=== PATIENT | female | born 1970 | race Caucasian/White ===

== ENCOUNTER 2018-01-11 14:43 | Emergency (ER) | payer OTHER ==
[~2018-01-11] VITALS: Ht 172.7 cm; Wt 136.1 kg
[2018-01-11 15:34] LABS: ABSOLUTE BASOPHIL COUNT 0 /CUMM (0.0-0.2); ABSOLUTE EOSINOPHIL COUNT 0.3 /CUMM (0.0-0.7); ABSOLUTE GRANULOCYTE CT 8.8 /CUMM (1.4-6.5); ABSOLUTE LYMPH COUNT 2.1 /CUMM (1.2-3.4); ABSOLUTE MONOCYTE COUNT 0.8 /CUMM (0.10-0.60); BASOPHIL % 0.2 % (0.0-2.0); EOSINOPHIL % 2.7 % (0-5); GRANULOCYTE % 73.5 % (42.2-75.2); HEMATOCRIT 49.2 % (37-47); MEAN CORPUSCULAR HGB 29.1 PG (27.0-31.0); MEAN CORPUSCULAR HGB CONC 33.8 G/DL (33.0-37.0); MEAN CORPUSCULAR VOLUME 85.9 FL (81.0-99.0); MEAN PLATELET VOLUME 8.4 FL (7.4-10.4); PLATELET COUNT 271 /CUMM (130-400); RED BLOOD CELL CT 5.73 /CUMM (4.20-5.40)
--- NOTE | 2018-01-11 16:32 | ED GENERAL ADULT ---
History of Present Illness General Chief Complaint: Chest Pain Stated Complaint: CP Source: patient Exam Limitations: no limitations Vital Signs & Intake/Output Vital Signs & Intake/Output Vital Signs Date Time Temp Pulse Resp B/P B/P Pulse O2 O2 Flow FiO2 Mean Ox Delivery Rate 01/11 1900 93 22 139/73 97 Room Air 01/11 1824 97 01/11 1735 98.1 94 18 157/85 97 Room Air 01/11 1733 97 Room Air 01/11 1505 98.2 104 16 140/89 97 Room Air Allergies Coded Allergies: Sulfa (Sulfonamide Antibiotics) (ANAPHYLAXIS 01/11/18) Reconcile Medications Albuterol Sulfate (Proair Hfa) 90 MCG HFA.AER.AD 2 PUF INH Q4-6 PRN PRN BRONCHITIS Albuterol Sulfate (Proair Hfa) 90 MCG HFA.AER.AD 2 PUF INH Q4-6 PRN PRN BRONCHITIS Atorvastatin Calcium 10 MG TABLET 1 TAB PO DAILY CHOL (Reported) Codeine Phosphate/Guaifenesi (Codeine-Guaifen 10-100 MG/5 Ml) 10 MG-100 MG/5 ML LIQUID 2 TSP PO Q6 PRN COUGH Fluconazole 200 MG TABLET 1 TAB PO DAILY UNK (Reported) Metformin HCl 850 MG TABLET 1 TAB PO BID DM (Reported) Prednisone 20 MG TABLET 1 TAB PO DAILY BRONCHITIS Sitagliptin Phosphate (Januvia) 100 MG TABLET 1 TAB PO DAILY DM (Reported) Triage Note: PT SENT IN BY DR. RAMIREZ TO R/O PE. PT HAVING PLURITIC CHEST PAIN FOR THE PAST TWO WEEKS. PT NEW ONSET DM. Triage Nurses Notes Reviewed? yes Onset: Abrupt Duration: week(s): Timing: recent history : No Patient currently breastfeeds: No HPI: 01/11/18 47-year-old female presented to the emergency department for cough, nasal congestion and difficulty breathing. She had the symptoms for over 2 weeks. She had left sided rib pain. She only has the pain when she coughs. She says that she was newly diagnosed with diabetes by Dr. Ramirez, Dr. Ramirez had prescribed her Zithromax but she hasn't filled it yet. He also started her on metformin. She denies any fever. No prior history of asthma. She was referred to the emergency department to rule out PE. Past History Travel History Traveled to [place] past 21 day No Medical History Any Pertinent Medical History? see below for history Neurological: NONE EENT: NONE Cardiovascular: NONE Respiratory: NONE Gastrointestinal: NONE Hepatic: NONE Renal: NONE Musculoskeletal: NONE Psychiatric: NONE Endocrine: diabetes Blood Disorders: NONE Cancer(s): NONE [employer]/Reproductive: POLYCYSTIC OVARIAN SYNDRO Isolation History: Standard Surgical History Surgical History: non-contributory (laser myomectomy) Psychosocial History What is your primary language Vietnamese Tobacco Use: Current Daily Use Daily Tobacco Use Amount/Type: => 5 Cigarettes daily ETOH Use: occasional use Illicit Drug Use: denies illicit drug use Family History Hx Contributory? No Review of Systems Review of Systems Constitutional: Reports: see HPI. EENTM: Reports: no symptoms. Respiratory: Reports: cough. Denies: no symptoms. Cardiovascular: Reports: chest pain. Denies: edema. GI: Reports: no symptoms. Genitourinary: Reports: no symptoms. Musculoskeletal: Reports: no symptoms. Skin: Reports: no symptoms. Neurological/Psychological: Reports: no symptoms. Hematologic/Endocrine: Reports: no symptoms. Immunologic/Allergic: Reports: no symptoms. Physical Exam Physical Exam General Appearance: well developed/nourished, alert, awake, anxious Head: atraumatic, normal appearance Eyes: Bilateral: normal appearance, PERRL, EOMI. Ears, Nose, Throat: normal pharynx, normal ENT inspection Neck: normal inspection, supple, full range of motion Respiratory: decreased breath sounds Cardiovascular: regular rate/rhythm Peripheral Pulses: 4+ radial (R), 4+ radial (L) Gastrointestinal: normal bowel sounds, soft, non-tender Back: normal range of motion Extremities: normal inspection, no edema Neurologic/Psych: no motor/sensory deficits, awake, alert, oriented x 3 Skin: intact, normal color, warm/dry Core Measures ACS in differential dx? No CVA/TIA Diagnosis: No Sepsis Present: No Sepsis Focused Exam Completed? No Progress Differential Diagnoses I considered the following diagnoses in my evaluation of the patient: chest wall pain, pulmonary embolism,upper respiritory infection, pleurisy, costrocondritis, bronchittis Plan of Care: Orders Procedure Date/time Status Add-on Test (ER Only) 01/11 1643 Active TROPONIN LEVEL 01/11 1518 Complete D-DIMER 01/11 1518 Complete HUMAN BETA HCG SCREEN 01/11 1508 Complete COMPREHENSIVE METABOLIC PANEL 01/11 1508 Complete CBC WITHOUT DIFFERENTIAL 01/11 1508 Complete EKG 01/11 1444 Active Laboratory Tests 01/11/18 1518: Anion Gap 13, Estimated GFR > 60, BUN/Creatinine Ratio 16.3, Glucose 283 H, Calcium 9.6, Total Bilirubin 0.3, AST 28, ALT 54 H, Alkaline Phosphatase 106, Troponin I < 0.01, Total Protein 7.4, Albumin 4.1, Globulin 3.3, Albumin/ Globulin Ratio 1.2, Total Beta HCG NEGATIVE, D-Dimer High Sensitivty < 200, CBC w Diff NO MAN DIFF REQ, RBC 5.73 H, MCV 85.9, MCH 29.1, MCHC 33.8, RDW 14.0, MPV 8.4, Gran % 73.5, Lymphocytes % 17.3 L, Monocytes % 6.3, Eosinophils % 2.7, Basophils % 0.2, Absolute Granulocytes 8.8 H, Absolute Lymphocytes 2.1, Absolute Monocytes 0.8 H, Absolute Eosinophils 0.3, Absolute Basophils 0 01/11/18 1509: Troponin I Cancelled Initial ED EKG: NSR, nonspecific ST T wave chg Comments: The patient's CTA was negative. EKG was unremarkable. Troponin was negative. Her pain was in the rib not in her chest. It only when she coughs. Prednisone and Robitussin with codeine were added to her treatment regime. She will empirically start the Zithromax. She will follow-up with Dr. Ramirez. She will return to the emergency department if worse. Departure Departure Disposition: HOME OR SELF CARE Condition: Stable Clinical Impression Primary Impression: Bronchitis Referrals: James [facility] (PCP/Family) Departure Forms: Customer Survey General Discharge Information Prescriptions: Current Visit Scripts Albuterol Sulfate (Proair Hfa) 2 PUF INH Q4-6 PRN PRN BRONCHITIS #1 INHAL Albuterol Sulfate (Proair Hfa) 2 PUF INH Q4-6 PRN PRN BRONCHITIS #1 INHAL Prednisone 1 TAB PO DAILY #6 TAB Codeine Phosphate/Guaifenesi (Codeine-Guaifen 10-100 MG/5 Ml) 2 TSP PO Q6 PRN COUGH #4 OZ Critical Care Note Critical Care Note Critical Care Time: non-applicable
[2018-01-11] MEDS ORDERED: FLUCONAZOLE200 M1 PO (16:34)
[2018-01-11] MEDS ORDERED: ATORVASTATIN CA10 M1 PO (16:35)
[2018-01-11] MEDS ORDERED: JANUVIA100 M1 PO (16:35)
[2018-01-11] MEDS ORDERED: METFORMIN HCL850 M1 PO (16:35)
--- NOTE | 2018-01-11 17:33 | CT SCAN REPORT ---
EXAMINATION: CT ANGIOGRAM WITH AND WITHOUT CONTRAST (CT PULMONARY ANGIOGRAM FOR PE) CLINICAL INFORMATION: Chest pain. COMPARISON: Chest x-ray 01/09/2018. TECHNIQUE: Prior to contrast administration, noncontrast localization images were obtained. Subsequently, multidetector volumetric imaging was performed from the thoracic inlet to below the diaphragms following the initial administration of 70 mL Omnipaque 350 intravenous contrast. No contrast reaction reported. Sagittal, coronal, and MIP oblique sagittal reformatted images were obtained on the CT workstation, uploaded to PACS, and reviewed. Total contrast dose was 145 mL of Optiray 320 given the 2 boluses administered (70 mL initial and 75 mL secondary) due to suboptimal timing of the initial bolus. DLP: 1097 mGy-cm FINDINGS: QUALITY OF STUDY/CONTRAST BOLUS: Satisfactory. PULMONARY ARTERIES: No central or segmental pulmonary emboli. THORACIC AORTA: No aneurysm or dissection. LUNG: No focal consolidation, nodules or masses. PLEURA: No pleural effusion or pneumothorax. MEDIASTINUM: Normal heart size. No pericardial effusion. No hilar or mediastinal lymphadenopathy. No evidence of septal bowing or right heart strain. Small hiatal hernia CHEST WALL/AXILLAE: No axillary or internal mammary lymphadenopathy. OSSEOUS STRUCTURES: No acute or suspicious osseous abnormality. UPPER ABDOMEN: Hepatic steatosis. No focal abnormality. No reflux of contrast into the hepatic veins to suggest elevated right heart pressures. IMPRESSION: No evidence of pulmonary embolism. Small hiatal hernia.
[2018-01-11 19:00] VITALS: BP 139/73
[2018-01-11] MEDS ORDERED: PROAIR HFA8.5 GM INH ×2 (19:12→19:13)
[2018-01-11] MEDS ORDERED: CODEINE-GUAIFE120 M1 PO (19:15)
[2018-01-11] MEDS ORDERED: PREDNISONE20 M1 PO (19:15)
[2018-01-15] MEDS ORDERED: ZITHROMAX250 M2 PO (12:03)
== END 2018-01-11 19:24 ==
LOC: ERH 14:43
PROVIDERS: Physician Assistant
DX: J40 Bronchitis, not specified as acute or chronic (principal); F17.210 Nicotine dependence, cigarettes, uncomplicated; R07.81 Pleurodynia; E11.9 Type 2 diabetes mellitus without complications; Z79.84 Long term (current) use of oral hypoglycemic drugs
CPT/HCPCS: 1263; 93005; 93010